=== PATIENT | female | born 1950 | race Caucasian/White ===

== ENCOUNTER → 2016-12-08 | Outpatient (CLI) | payer MEDICARE ==
--- NOTE | 2016-12-08 20:01 | KCIC ---
Bilateral digital screening mammograms: Reason for examination: Routine screening. Comparison is made to previous studies dated back to 03/22/2012. The skin and nipples show no abnormalities. No abnormal axillary lymph nodes are seen. The breast parenchyma shows scattered fibroglandular density. (Breast density: Category B.) There continues to be parenchymal asymmetry at the 2:00 B position of the left breast which has not changed. There are no new dominant masses, suspicious calcifications or architectural distortions. Impression: No evidence of malignancy. Recommend routine screening. BI-RADS Category 2: Benign. "Our facility is accredited by the [employer] Mammography [employer]." This patient's information has been entered into a reminder system for the patient to be notified with the results of her examination and a target date for the next mammogram. Electronically signed by: Radha Malik MD (12/08/2016 7:58 PM)
== END | disposition home or self-care (01) ==
LOC: KCIC MAMMO 14:01
PROVIDERS: ATTEND Nurse Practitioner Family
DX: Z12.31 Encounter for screening mammogram for malignant neoplasm of breast (principal)
CPT/HCPCS: G0202; 77067

== ENCOUNTER → 2017-07-29 | Outpatient (CLI) | payer MEDICARE | END | disposition home or self-care (01) | LOC: EKG 14:04 | DX: R00.1 Bradycardia, unspecified (principal) | CPT/HCPCS: 93225 ==

== ENCOUNTER 2017-08-27 08:51 | Outpatient (CLI) | payer MEDICARE ==
[2017-08-27 10:01] LABS: HEMATOCRIT 34.8 % (36.0-47.0); HEMOGLOBIN 11.6 g/dL (12.0-15.5); MEAN CORPUSCULAR HEMOGLOBIN 29 pg (25-35); MEAN CORPUSCULAR HGB CONC 33 g/dL (31-37); MEAN CORPUSCULAR VOLUME 87 fL (79-100); PLATELET COUNT 222 x10^3/uL (140-400); RED BLOOD COUNT 3.99 x10^6/uL (3.50-5.40); RED CELL DISTRIBUTION WIDTH 13.8 % (11.5-14.5); WHITE BLOOD COUNT 6.5 x10^3/uL (4.0-11.0)
[2017-08-27 10:10] LABS: ANION GAP 9 (6-14); BLOOD UREA NITROGEN 27 mg/dL (7-20); CALCIUM 9.3 mg/dL (8.5-10.1); CARBON DIOXIDE 28 mmol/L (21-32); CHLORIDE 103 mmol/L (98-107); CREATININE 1.3 mg/dL (0.6-1.0); GFR 40.6; GLUCOSE 107 mg/dL (70-99); PARTIAL THROMBOPLASTIN TIME 26 SEC (24-38); PROTHROMBIN TIME PATIENT 12.8 SEC (11.7-14.0); SODIUM 140 mmol/L (136-145)
[2017-08-27] MEDS ORDERED: IODIXANOL 320 MG/ML 100 ML VIAL. (10:11)
[2017-08-27] MEDS ORDERED: LIDOCAINE 2% 20 ML VIAL. (10:11)
[2017-08-27] MEDS ORDERED: fentaNYL PF VIAL 100 MCG/2 ML VIAL (11:04)
[2017-08-27] MEDS ORDERED: MIDAZOLAM HCL/PF 2 MG/2 ML VIAL. (11:05)
[2017-08-27] MEDS: IODIXANOL 320 MG/ML 100 ML VIAL. IART (11:30)
[2017-08-27] MEDS ORDERED: CONTRAST GIVEN MC (11:45)
[2017-08-27] MEDS: LIDOCAINE 2% 20 ML VIAL. IJ (12:11)
[2017-08-27] MEDS: MIDAZOLAM HCL/PF 2 MG/2 ML VIAL. IV (12:12)
[2017-08-27] MEDS: fentaNYL PF VIAL 100 MCG/2 ML VIAL IV (12:12)
[2017-08-27] MEDS: ONDANSETRON PF 4 MG/2 ML VIAL. IV (12:55)
== END 2017-08-27 17:17 | disposition home or self-care (01) ==
LOC: CCL 08:51
DX: I20.0 Unstable angina (principal); I10 Essential (primary) hypertension; I50.9 Heart failure, unspecified; E78.00 Pure hypercholesterolemia, unspecified; G47.30 Sleep apnea, unspecified; E66.9 Obesity, unspecified; K21.9 Gastro-esophageal reflux disease without esophagitis; M19.90 Unspecified osteoarthritis, unspecified site; Z88.2 Allergy status to sulfonamides; Z88.8 Allergy status to other drugs, medicaments and biological substances; Z96.653 Presence of artificial knee joint, bilateral; Z79.82 Long term (current) use of aspirin; Z79.899 Other long term (current) drug therapy; Z79.2 Long term (current) use of antibiotics
CPT/HCPCS: 36415; 80048; 85027; 85610; 85730; 93460; 99152; 99153; C1769; C1773; C1892; J1644; J2250; J2405; J3010

== ENCOUNTER 2017-12-09 17:51 | Emergency (ER) | payer MEDICARE ==
[2017-12-09] MEDS: ONDANSETRON ODT 4 MG TAB.RAPDIS. PO (18:50)
[2017-12-09] MEDS: HYDROcodone/APAP 5/325MG 1 TAB TABLET PO (18:50)
[2017-12-09] MEDS: ALPRAZolam 0.5 MG TABLET PO (19:35)
== END 2017-12-09 22:06 | disposition home or self-care (01) ==
LOC: ER 17:51
DX: S02.2XXA Fracture of nasal bones, initial encounter for closed fracture (principal); S00.03XA Contusion of scalp, initial encounter; M25.562 Pain in left knee; I25.10 Atherosclerotic heart disease of native coronary artery without angina pectoris; K21.9 Gastro-esophageal reflux disease without esophagitis; I10 Essential (primary) hypertension; Z90.49 Acquired absence of other specified parts of digestive tract; Z88.2 Allergy status to sulfonamides; Z88.8 Allergy status to other drugs, medicaments and biological substances; W01.0XXA Fall on same level from slipping, tripping and stumbling without subsequent striking against object, initial encounter; Y93.89 Activity, other specified; Y92.89 Other specified places as the place of occurrence of the external cause; Y99.8 Other external cause status
CPT/HCPCS: 70450; 70486; 73562; 99284; Q0162

== ENCOUNTER → 2017-12-23 | Day surgery (SDC) | payer MEDICARE ==
[~2017-12-23] MED LIST: EPINEPHrine VIAL 30 MG/30 ML VIAL; FAMOTIDINE 20 MG/2 ML VIAL; LIDOCAINE 1% PF 2 ML VIAL. ID; LIDOCAINE 2% 20 ML VIAL.; LIDOCAINE 2% PF Vial for OR 5 ML VIAL.; MORPHINE SULFATE 2 MG/ML DISP.SYRIN. IV; ONDANSETRON PF 4 MG/2 ML VIAL.; ONDANSETRON PF 4 MG/2 ML VIAL. IV; OXYMETAZOLINE 0.05% NASAL SPRAY 30ML BOTTLE. NS; PROCHLORPERAZINE 10 MG/2 ML VIAL. IV; PROPOFOL 20 ML IV; fentaNYL PF VIAL 100 MCG/2 ML VIAL IV
[2017-12-23] MEDS: IV RINGERS,LACTATED 1000ML 1,000 ML IV (14:22)
[2017-12-23] MEDS: OXYMETAZOLINE 0.05% NASAL SPRAY 30ML BOTTLE. NS (14:25)
[2017-12-23] MEDS: LIDOCAINE 2% 20 ML VIAL. (16:02)
[2017-12-23] MEDS: fentaNYL PF VIAL 100 MCG/2 ML VIAL IV (16:13)
== END | disposition home or self-care (01) ==
LOC: SURG 13:10
DX: S02.2XXA Fracture of nasal bones, initial encounter for closed fracture (principal); W01.0XXA Fall on same level from slipping, tripping and stumbling without subsequent striking against object, initial encounter; Y93.89 Activity, other specified; Y92.89 Other specified places as the place of occurrence of the external cause; Y99.8 Other external cause status; Z90.49 Acquired absence of other specified parts of digestive tract; I25.10 Atherosclerotic heart disease of native coronary artery without angina pectoris; I10 Essential (primary) hypertension; K21.9 Gastro-esophageal reflux disease without esophagitis; E78.00 Pure hypercholesterolemia, unspecified; E03.9 Hypothyroidism, unspecified; F17.210 Nicotine dependence, cigarettes, uncomplicated; G47.30 Sleep apnea, unspecified; E66.01 Morbid (severe) obesity due to excess calories; Z68.43 Body mass index [BMI] 50.0-59.9, adult; Z72.89 Other problems related to lifestyle; Z88.1 Allergy status to other antibiotic agents; Z88.2 Allergy status to sulfonamides; Z88.8 Allergy status to other drugs, medicaments and biological substances; Z96.653 Presence of artificial knee joint, bilateral; Z98.890 Other specified postprocedural states; Z79.82 Long term (current) use of aspirin; Z79.899 Other long term (current) drug therapy
CPT/HCPCS: 21320; A7015; J0171; J2001; J2405; J2704; J3010; S0028

== ENCOUNTER → 2018-01-26 | Outpatient (CLI) | payer MEDICARE ==
[2017-12-23 16:37] VITALS: BP 152/74
[~2018-01-26] MED LIST changes: +ALCL15CR TP; +ASPI-630 PO; +CALC500T30 PO; +CETI10TA22 PO; +CHOL100013 PO; +CINN500C2 PO; -EPINEPHrine VIAL 30 MG/30 ML VIAL; +ESOM20CA PO; -FAMOTIDINE 20 MG/2 ML VIAL; +FERR325T14 PO; +FLUO15CR TP; +FURO40TA4 PO; +HYDR-971 PO; +HYDR115S2 PO; +LABE100T5 PO; +LEVO75TA5 PO; -LIDOCAINE 1% PF 2 ML VIAL. ID; -LIDOCAINE 2% 20 ML VIAL.; -LIDOCAINE 2% PF Vial for OR 5 ML VIAL.; +LOSA100T6 PO; +METH-39 PO; -MORPHINE SULFATE 2 MG/ML DISP.SYRIN. IV; +MULT-650 PO; +MUPI22OI2 TP; +OMEG-165 PO; -ONDANSETRON PF 4 MG/2 ML VIAL.; -ONDANSETRON PF 4 MG/2 ML VIAL. IV; -OXYMETAZOLINE 0.05% NASAL SPRAY 30ML BOTTLE. NS; +POTA20TA82 PO; -PROCHLORPERAZINE 10 MG/2 ML VIAL. IV; -PROPOFOL 20 ML IV; +RED600CA2 PO; +TIZA4TAB PO; +TRAZ-86 PO; +VITA400C37 PO; -fentaNYL PF VIAL 100 MCG/2 ML VIAL IV; +tylenol arthritis
--- NOTE | 2018-01-26 16:51 | KCIC ---
Bilateral digital screening mammograms: Reason for examination: Routine screening. Comparison is made to previous studies dated 12/08/2016 and 10/02/2015. Interpretation was made with the benefit of CAD. The skin and nipples show no abnormalities. No abnormal axillary lymph nodes are seen. The breast parenchyma shows scattered fibroglandular density. (Breast density: Category B.) There continue to be patchy areas of parenchymal density in the upper outer quadrants bilaterally which have not changed. There are no new dominant masses, suspicious calcifications or architectural distortions. Impression: No evidence of malignancy. Recommend routine screening. BI-RADS Category 2: Benign. "Our facility is accredited by the [employer] Mammography [employer]." This patient's information has been entered into a reminder system for the patient to be notified with the results of her examination and a target date for the next mammogram. Electronically signed by: Radha Malik MD (01/26/2018 4:48 PM) [facility]
== END | disposition home or self-care (01) ==
LOC: KCIC MAMMO 12:56
PROVIDERS: ATTEND Nurse Practitioner Family
DX: Z12.31 Encounter for screening mammogram for malignant neoplasm of breast (principal); I11.0 Hypertensive heart disease with heart failure; I50.33 Acute on chronic diastolic (congestive) heart failure; E78.00 Pure hypercholesterolemia, unspecified; K21.9 Gastro-esophageal reflux disease without esophagitis; Z87.891 Personal history of nicotine dependence; Z88.1 Allergy status to other antibiotic agents; Z88.2 Allergy status to sulfonamides; Z88.8 Allergy status to other drugs, medicaments and biological substances; Z96.653 Presence of artificial knee joint, bilateral; Z90.49 Acquired absence of other specified parts of digestive tract; Z68.43 Body mass index [BMI] 50.0-59.9, adult
CPT/HCPCS: 77067

== ENCOUNTER → 2018-04-15 | Day surgery (SDC) | payer MEDICARE ==
[~2018-04-15] MED LIST changes: +IV RINGERS,LACTATED 1000ML 1,000 ML IV SCH; +LIDOCAINE 1% PF 2 ML VIAL. ID PRN; +LIDOCAINE 1% PF 2 ML VIAL. ONE; -LOSA100T6 PO; +LOSA100T7 PO; +MIDAZOLAM HCL/PF 2 MG/2 ML VIAL. IV PRN; +PROPOFOL 20 ML IV ONE; +fentaNYL PF VIAL 100 MCG/2 ML VIAL IV PRN
[2018-04-15 11:14] VITALS: BP 172/71
--- NOTE | 2018-04-16 03:49 | CONS ---
DATE OF CONSULTATION: 04/15/2018 GASTROENTEROLOGY CONSULTATION REFERRING PHYSICIAN: Medina Serrano M.D. HISTORY OF PRESENT ILLNESS: A 68-year-old female with past medical history significant for colonic polyps as well as hypertension and hypothyroidism, is seen for interval colonoscopy. Bowel habits are regular without diarrhea or constipation. There has been no bleeding except for occasional hemorrhoids. Weight and appetite are stable. Last colon exam did reveal tubular adenoma in 2007, otherwise without additional complaints. PAST MEDICAL HISTORY: Hypertension, obesity, and hypothyroidism. ALLERGIES: SULFA. MEDICATIONS: Include aspirin, calcium, cholecalciferol, Nexium, furosemide, labetalol, levothyroxine, losartan, potassium, tizanidine, trazodone. FAMILY AND SOCIAL HISTORY: Significant for cardiovascular disease in mother. No colon cancer, no colon polyps except herself. Esophageal stomach cancer in 2 siblings. REVIEW OF SYSTEMS: Per records. PHYSICAL EXAMINATION: GENERAL: Reveals a well-nourished, well-developed female who is alert and cooperative, in no acute distress. VITAL SIGNS: Temperature 97, pulse 64, respiratory rate 20. HEENT: Normocephalic, atraumatic head. Pupils and extraocular muscles are not tested. Sclerae are anicteric. NECK: Supple. LUNGS: Clear. CARDIOVASCULAR: Reveals an S1, S2 without S3, S4 or appreciable murmur. ABDOMEN: Reveals soft abdomen, normal bowel sounds without appreciable hepatosplenomegaly. EXTREMITIES: Reveals no cyanosis, clubbing, edema. IMPRESSION: History of colonic polyps. Surveillance exam is recommended at this time. Risks, benefits of procedure have been previously discussed with the patient with risk of perforation. She is willing to proceed. KATIE MURDOCK MD DR: PITO/keon JOB#: [id number] / [id number]
== END | disposition home or self-care (01) ==
LOC: ENDOS 09:15
PROVIDERS: ATTEND Internal Medicine Gastroenterology
DX: Z12.11 Encounter for screening for malignant neoplasm of colon (principal); K64.0 First degree hemorrhoids; I10 Essential (primary) hypertension; E03.9 Hypothyroidism, unspecified; E66.9 Obesity, unspecified; Z88.2 Allergy status to sulfonamides; Z79.82 Long term (current) use of aspirin; Z79.899 Other long term (current) drug therapy; Z85.028 Personal history of other malignant neoplasm of stomach; Z86.010 Personal history of colon polyps; Z82.49 Family history of ischemic heart disease and other diseases of the circulatory system
CPT/HCPCS: G0105; J2704; 45378

== ENCOUNTER → 2018-10-20 | Outpatient (CLI) | payer MEDICARE ==
[2018-04-15 11:14] VITALS: BP 172/71
[~2018-10-20] MED LIST changes: +HYDR-3164 PO; -HYDR-971 PO; -IV RINGERS,LACTATED 1000ML 1,000 ML IV SCH; -LIDOCAINE 1% PF 2 ML VIAL. ID PRN; -LIDOCAINE 1% PF 2 ML VIAL. ONE; +LOSA100T14 PO; -LOSA100T7 PO; -MIDAZOLAM HCL/PF 2 MG/2 ML VIAL. IV PRN; -PROPOFOL 20 ML IV ONE; -fentaNYL PF VIAL 100 MCG/2 ML VIAL IV PRN
--- NOTE | 2018-10-20 17:19 | KCIC ---
EXAM: Maxillofacial bone CT without contrast. HISTORY: Abnormal smell. TECHNIQUE: Computed tomographic images of the paranasal sinuses were obtained without contrast. *One or more of the following individualized dose reduction techniques were utilized for this examination: 1. Automated exposure control. 2. Adjustment of the mA and/or kV according to patient size. 3. Use of iterative reconstruction technique. COMPARISON: None. FINDINGS: There is mild ethmoid sinus mucosal thickening. The ostiomeatal units are widely patent. There is minimal nasal septal deviation. There is no sinus opacification or air-fluid level. There is no sinus wall erosion or thickening. There is left temporomandibular joint osteoarthritis with joint space narrowing and bony remodeling. There is a small amount of fluid within the right mastoid air cells. No suspicious calvarial lesion is seen. There is no mass effect or midline shift. There is no hydrocephalus. The orbits are unremarkable. IMPRESSION: 1. Mild ethmoid sinus because of thickening. There is no convincing acute or chronic sinusitis. 2. Left temporomandibular joint osteoarthritis. Electronically signed by: Ninfa Chamberlain MD (10/20/2018 5:16 PM) [facility]
== END | disposition home or self-care (01) ==
LOC: KCIC CT 15:19
PROVIDERS: ATTEND Otolaryngology
DX: J34.2 Deviated nasal septum (principal); J34.89 Other specified disorders of nose and nasal sinuses; M26.69 Other specified disorders of temporomandibular joint
CPT/HCPCS: 70486

== ENCOUNTER → 2018-11-17 | Outpatient (CLI) | payer MEDICARE ==
[2018-04-15 11:14] VITALS: BP 172/71
--- NOTE | 2018-11-17 17:15 | CARD ---
MR#: [id number] Date of Study: 11/17/2018 Ordering Physician: LESIA SHEPHERD, Referring Physician: LESIA SHEPHERD, Tech: Oliva Lopez APPROVED REPORT EXAM: Two-dimensional and M-mode echocardiogram with Doppler and color Doppler. Other Information Quality : AverageHR: 58bpm Technically limited study due to body habitus. INDICATION LV Function:Diastolic Chronic Diastolic Heart Failure RISK FACTORS Hypertension 2D DIMENSIONS RVDd3.6 (2.9-3.5cm)Left Atrium(2D)4.9 (1.6-4.0cm) IVSd1.3 (0.7-1.1cm)Aortic Root(2D)3.4 (2.0-3.7cm) LVDd6.0 (3.9-5.9cm)LVOT Diameter2.3 (1.8-2.4cm) PWd1.0 (0.7-1.1cm)LVDs3.4 (2.5-4.0cm) FS (%) 43.8 %SV132.8 ml LVEF(%)74.2 (>50%) Aortic Valve AoV Peak Juan.153.0cm/sAoV VTI41.6cm AO Peak GR.9.4mmHgLVOT Peak Juan.105.2cm/s LVOT VTI 30.80cmAO Mean GR.5mmHg BETSY (VMAX)1.98wf2PQV (VTI)3.06cm2 Mitral Valve MV E Gdmjalcw223.9cm/sMV DECEL BZRE348yp MV A Oeuhaygb88.1cm/sMV TFY09us E/A Ratio2.4MVA (PHT)5.91cm2 TDI E/Lateral E'15.8E/Medial E'16.0 Pulmonary Valve PV Peak Skbetqxz330.3cm/sPV Peak Grad.6mmHg Tricuspid Valve TR P. Czulwkwj766ue/sRAP SOCYTXAH4yjEb TR Peak Gr.87ffSgDCKG63bgDf Pulmonary Vein S1 Grderxsg29.7cm/sD2 Serufocm64.7cm/s PVa qrhpoeit681ktro LEFT VENTRICLE There is mild concentric left ventricular hypertrophy. The left ventricular systolic function is norm al and the ejection fraction is within normal range. EF 55% There is normal LV segmental wall motion. Tissue Doppler imaging reveals moderate left ventricular diastolic dysfunction. RIGHT VENTRICLE The right ventricle is mildly dilated. The right ventricle is mildly hypertrophied. The right ventric ular systolic function is normal. ATRIA The left atrium is mildly dilated. The right atrium is mildly dilated. The interatrial septum is inta ct with no evidence for an atrial septal defect or patent foramen ovale as noted on 2-D or Doppler im aging. AORTIC VALVE The aortic valve is thickened but opens well. Doppler and Color Flow revealed no significant aortic r egurgitation. There is no significant aortic valvular stenosis. MITRAL VALVE The mitral valve is thickened but opens well. There is no evidence of mitral valve prolapse. There is no mitral valve stenosis. Doppler and Color-flow revealed trace mitral regurgitation. TRICUSPID VALVE The tricuspid valve is normal in structure and function. Doppler and Color Flow revealed trace tricus pid regurgitation with an estimated PAP of 49 mmHg. There is moderate pulmonary hypertension. There i s no tricuspid valve stenosis. PULMONIC VALVE The pulmonic valve is not well visualized. Doppler and Color Flow revealed no pulmonic valvular regur gitation. There is no pulmonic valvular stenosis. GREAT VESSELS The aortic root is normal in size. The IVC is normal in size and collapses >50% with inspiration. PERICARDIAL EFFUSION There is no evidence of significant pericardial effusion. Critical Notification Critical Value: No <Conclusion> The left ventricular systolic function is normal and the ejection fraction is within normal range. EF 55% There is normal LV segmental wall motion. Doppler and Color Flow revealed trace tricuspid regurgitation with an estimated PAP of 49 mmHg. There is moderate pulmonary hypertension. Signed by : Noel Harrington, Electronically Approved : 11/17/2018 17:14:41
== END | disposition home or self-care (01) ==
LOC: ECHO 13:48
PROVIDERS: ATTEND Internal Medicine Cardiovascular Disease
DX: I11.0 Hypertensive heart disease with heart failure (principal); I50.32 Chronic diastolic (congestive) heart failure; I27.20 Pulmonary hypertension, unspecified
CPT/HCPCS: 93306

== ENCOUNTER → 2018-12-27 | Outpatient (CLI) | payer MEDICARE ==
[2018-04-15 11:14] VITALS: BP 172/71
--- NOTE | 2018-12-27 15:56 | KCIC ---
Indication: Bilateral lower extremity swelling and pain TECHNIQUE: Grayscale, color Doppler and spectral waveform images of the bilateral lower extremity arteries COMPARISON: None FINDINGS: Right side: Biphasic waveforms in the TRAIN DIRECTOR with velocity of 251 cm/s suggesting moderate stenosis. Monophasic waveform in the profunda femoris artery with velocity of 144 cm/s. Monophasic waveform in the proximal SFA with velocity of 247 cm/s suggesting moderate stenosis. Monophasic waveforms in the mid SFA with velocity of 214 cm/s suggesting mild stenosis. Monophasic waveforms in the distal SFA with velocity of 147 cm/s. Monophasic waveforms in the popliteal artery with velocity of 167 cm/s. Posterior tibial artery, peroneal artery, anterior tibial artery are not visualized. Monophasic waveform in the dorsalis pedis artery with velocity of 98 cm/s. Diffuse leg soft tissue edema noted. Left side: Biphasic waveforms in the TRAIN DIRECTOR with velocity of 222 cm/s suggesting mild stenosis. Monophasic waveform in the profunda femoris artery with velocity of 107 cm/s. Biphasic waveforms in the proximal SFA with velocity of 207 cm/s suggesting mild stenosis. Biphasic waveforms in the mid SFA with velocity of 185 cm/s. Monophasic waveform in the distal SFA with velocity of 192 cm/s. Monophasic waveform in the popliteal artery with velocity of 115 cm/s. Monophasic waveform in the posterior tibial artery with velocity of 73 cm/s. Peroneal artery, anterior tibial artery and dorsalis pedis artery are not visualized. Small oval-shaped hypoechoic nodule in the medial aspect of the thigh measuring 2.7 x 0.9 x 2.0 cm. IMPRESSION: Limited exam due to body habitus. 1. Nonvisualization of segments of bilateral infrapopliteal arteries as described above may be secondary to diffuse high-grade stenosis or complete occlusion. 2. 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 3. Edema in the bilateral leg soft tissue. 4. Indeterminate deep left medial thigh soft tissue lesion may be a lymph node, hematoma, atypical lipoma or small complex fluid collection. Short-term follow-up recommended. Electronically signed by: Juan Carlos Leonardo DO (12/27/2018 3:53 PM) [facility]
== END | disposition home or self-care (01) ==
LOC: KCIC US 14:30
PROVIDERS: ATTEND Internal Medicine Cardiovascular Disease
DX: I70.203 Unspecified atherosclerosis of native arteries of extremities, bilateral legs (principal); R22.42 Localized swelling, mass and lump, left lower limb
CPT/HCPCS: 93925

== ENCOUNTER → 2018-12-27 | Outpatient (CLI) | payer MEDICARE ==
[2018-04-15 11:14] VITALS: BP 172/71
[~2018-12-27] MED LIST changes: +GADOTERATE 7.5 MMOL/15ML VIAL. IVP ONE
--- NOTE | 2018-12-27 16:40 | KCIC ---
MRI Brain with and without contrast History: Disturbance of smell and taste. Technique: Multiplanar, multi sequential pre and postcontrast MR imaging was performed of the brain. Contrast: 30 mL Dotarem. Comparison: CT head December 09, 2017. Findings: Motion degraded examination. No large mass or definite signal abnormality along the course of the olfactory nerve or within the carotid before complete although imaging is degraded by patient motion. No acute infarct. No intracranial hemorrhage. No mass effect. No hydrocephalus. Extra-axial spaces are unremarkable. No pathologic enhancement. Moderate foci of T2/FLAIR hyperintensities within the hemispheric white matter. Imaged orbits are unremarkable. Mild ethmoid sinus mucosal thickening. Small right mastoid effusion. C1-C2 degenerative changes with posterior degenerative pannus. Impression: 1. Motion degraded examination. No acute intracranial abnormality. 2. Moderate nonspecific white matter changes, most often due to chronic microvascular ischemia. 3. Mild ethmoid sinus disease. 4. Small right mastoid effusion. Electronically signed by: Parviz Short DO (12/27/2018 4:37 PM) [facility]
== END | disposition home or self-care (01) ==
LOC: KCIC MRI 14:11
PROVIDERS: ATTEND Otolaryngology
DX: J32.2 Chronic ethmoidal sinusitis (principal); H74.8X1 Other specified disorders of right middle ear and mastoid; J34.89 Other specified disorders of nose and nasal sinuses; R90.82 White matter disease, unspecified; M47.812 Spondylosis without myelopathy or radiculopathy, cervical region
CPT/HCPCS: 70553; 82565; A9575

== ENCOUNTER → 2019-07-04 | Outpatient (CLI) | payer MEDICARE ==
[2018-04-15 11:14] VITALS: BP 172/71
[~2019-07-04] MED LIST changes: -CETI10TA22 PO; +CETI10TA24 PO; -GADOTERATE 7.5 MMOL/15ML VIAL. IVP ONE; +POTA20TA4 PO; -POTA20TA82 PO; -TIZA4TAB PO; +TIZA4TAB2 PO; +TRAZ-123 PO; -TRAZ-86 PO
--- NOTE | 2019-07-04 18:35 | KCIC ---
CHEST PA LATERAL History: Shortness of breath with exertion Comparison: 11/04/2014 view chest x-ray exam. Findings: Frontal and lateral views of chest were obtained. The cardiomediastinal silhouette is normal. Pulmonary vasculature is normal. The lungs are clear. No pleural effusion or pneumothorax is seen. There is no acute bone abnormality. IMPRESSION: No acute cardiopulmonary process. Electronically signed by: Bonifacio Jennings MD (07/04/2019 6:33 PM) [facility]
== END | disposition home or self-care (01) ==
LOC: KCIC 14:57
PROVIDERS: ATTEND Internal Medicine Critical Care Medicine
DX: R06.02 Shortness of breath (principal)
CPT/HCPCS: 71046

== ENCOUNTER → 2019-07-04 | Outpatient (CLI) | payer MEDICARE ==
[2018-04-15 11:14] VITALS: BP 172/71
--- NOTE | 2019-07-04 16:37 | KCIC ---
Bilateral digital screening mammograms: Reason for examination: Routine screening. Comparison is made to previous studies dated back to 10/02/2015. Interpretation is made with the benefit of CAD. The skin and nipples show no abnormalities. No abnormal lymph nodes are seen. The breast parenchyma is predominantly fatty. (Breast density: Category A.) There continues to be some nodular asymmetric parenchyma in the 2:00 B position of the left breast which is stable. There are no new dominant masses, suspicious calcifications or architectural distortions. Impression: No evidence of malignancy. Recommend routine screening. BI-RADS Category 2: Benign. "Our facility is accredited by the [employer] Mammography [employer]." This patient's information has been entered into a reminder system for the patient to be notified with the results of her examination and a target date for the next mammogram. Electronically signed by: Radha Malik MD (07/04/2019 4:35 PM) [facility]
== END | disposition home or self-care (01) ==
LOC: KCIC MAMMO 14:00
PROVIDERS: ATTEND Nurse Practitioner Family
DX: Z12.31 Encounter for screening mammogram for malignant neoplasm of breast (principal); N64.89 Other specified disorders of breast
CPT/HCPCS: 77067

== ENCOUNTER → 2020-09-05 | Outpatient (CLI) | payer MEDICARE ==
[2018-04-15 11:14] VITALS: BP 172/71
[~2020-09-05] MED LIST changes: -CETI10TA24 PO; +CETI10TA74 PO
--- NOTE | 2020-09-05 16:10 | CARD ---
MR#: [id number] Date of Study: 09/05/2020 Ordering Physician: LESIA SHEPHERD, Referring Physician: LESIA SHEPHERD Tech: Gisela Schwab RDCS APPROVED REPORT EXAM: Two-dimensional and M-mode echocardiogram with Doppler and color Doppler. Other Information Quality : Fair INDICATION Congestive Heart Failure Morbid Obesity 2D DIMENSIONS RVDd2.8 (2.9-3.5cm)Left Atrium(2D)4.4 (1.6-4.0cm) IVSd1.3 (0.7-1.1cm)Aortic Root(2D)3.4 (2.0-3.7cm) LVDd4.9 (3.9-5.9cm)LVOT Diameter2.4 (1.8-2.4cm) PWd1.1 (0.7-1.1cm)LVDs3.5 (2.5-4.0cm) FS (%) 28.8 %SV61.2 ml LVEF(%)55.3 (>50%) Aortic Valve AoV Peak Juan.140.1cm/sAoV VTI41.3cm AO Peak GR.7.9mmHgLVOT Peak Juan.90.4cm/s LVOT VTI 27.46cmAO Mean GR.5mmHg BETSY (VMAX)3.81vx2KTK (VTI)3.09cm2 Mitral Valve MV E Hcoekjon893.9cm/sMV DECEL BCMK140lg MV A Refohsqj96.4cm/sMV OCJ13uk E/A Ratio3.2MVA (PHT)6.57cm2 TDI E/Lateral E'36.5E/Medial E'41.9 Tricuspid Valve TR P. Jnunxysb726sg/sRAP HPJOEUAQ7fgDs TR Peak Gr.18reHgPQLV77grBu Pulmonary Vein S1 Smqnhkbd57.6cm/sD2 Nxfrdhxt49.1cm/s LEFT VENTRICLE The left ventricle is normal size. There is mild concentric left ventricular hypertrophy. The left ve ntricular systolic function is normal. The Ejection Fraction is 55-60%. There is normal LV segmental wall motion. Transmitral Doppler flow pattern is Grade III-reversible restrictive diastolic dysfuncti on. RIGHT VENTRICLE The right ventricle is normal size. The right ventricular systolic function is normal. ATRIA The left atrium is mildly dilated. The right atrium is mildly dilated. The interatrial septum is inta ct with no evidence for an atrial septal defect or patent foramen ovale as noted on 2-D or Doppler im aging. AORTIC VALVE The aortic valve is mildly thickened but opens well. Doppler and Color Flow revealed no significant a ortic regurgitation. There is no significant aortic valvular stenosis. MITRAL VALVE The mitral valve is calcified but opens well. There is no evidence of mitral valve prolapse. There is no mitral valve stenosis. Doppler and Color-flow revealed trace mitral regurgitation. TRICUSPID VALVE The tricuspid valve is normal in structure and function. Doppler and Color Flow revealed trace tricus pid regurgitation. The PA pressure was estimated at 29 mmHg. There is no tricuspid valve stenosis. PULMONIC VALVE The pulmonic valve is not well visualized. Doppler and Color Flow revealed no pulmonic valvular regur gitation. There is no pulmonic valvular stenosis. GREAT VESSELS The aortic root is normal in size. The ascending aorta is not well seen. The IVC is normal in size an d collapses >50% with inspiration. PERICARDIAL EFFUSION There is no evidence of significant pericardial effusion. Critical Notification Critical Value: No <Conclusion> The left ventricular systolic function is normal. The Ejection Fraction is 55-60%. There is normal LV segmental wall motion. Transmitral Doppler flow pattern is Grade III-reversible restrictive diastolic dysfunction. Trace mitral regurgitation. Trace tricuspid regurgitation. The PA pressure was estimated at 29 mmHg. There is no evidence of significant pericardial effusion. Signed by : Lesia Shepherd, Electronically Approved : 09/05/2020 16:09:59
== END ==
LOC: ECHO 14:24
PROVIDERS: ATTEND Internal Medicine Cardiovascular Disease
DX: I08.0 Rheumatic disorders of both mitral and aortic valves (principal); I11.0 Hypertensive heart disease with heart failure
CPT/HCPCS: 93306